=== PATIENT | male | born 1960 | race Caucasian/White ===

== ENCOUNTER 2018-06-21 07:03 | Day surgery (SDC) | payer OTHER ==
[2018-06-14 15:44] VITALS: BMI 32.5
[2018-06-21] MEDS ORDERED: PROPOFOL 20 ML ONE ×2 (07:08)
[2018-06-21 09:09] VITALS: TEMP 98
[2018-06-21 09:40] VITALS: BP 122/74; PULSE 77
== END 2018-06-21 09:40 | disposition home or self-care (01) ==
LOC: FASU-ENDO 07:03
PROVIDERS: ATTEND Internal Medicine Gastroenterology
PROC: 0DJD8ZZ Inspection of Lower Intestinal Tract, Via Natural or Artificial Opening Endoscopic (ICD-10-PCS; principal; 2018-06-21 08:30)
DX: Z86.010 Personal history of colon polyps (principal); K57.30 Diverticulosis of large intestine without perforation or abscess without bleeding
CPT/HCPCS: 82962